=== PATIENT | female | born 1990 | race Caucasian/White ===

== ENCOUNTER 2016-06-02 00:40 | Emergency (ER) | payer OTHER ==
--- NOTE | 2016-06-02 01:32 | PD ---
HPI Chief Complaint Left eye aura followed by a small headache specific to the left eye symptoms have now abated Date Seen: Jun 02, 2016 Time Seen: 01:28 Travel History International Travel<30 Days: No Contact w/Intl Traveler<30Days: No Known Affected Area: No History of Present Illness HPI 25-year-old female who is at 27 weeks and 5 days by her [place] of August 27, 2016 comes in today because of a slight left headache specific to her eye accompanied by a blood pressure at home of 133/77. Last was complicated by hypertension at 31 weeks followed by an eclamptic seizure at 33 weeks gestation. He since has been maintained on a baby aspirin during this symptoms have completely gone since she arrived to triage Para: 1 : 3 Last Menstrual Period: Jun 02, 2016 Miscarriage: 1 History Obstetric History Obstetric History section at 33 weeks due to eclampsia Past Surgical History Narrative Surgical section Family History Family History: Negative Social History Alcohol Use: No Tobacco Use: No Substance Abuse: No Allergies-Medications Narrative Medication Baby aspirin Physical Exam Narrative GENERAL: Well-nourished, well-developed patient. SKIN: Warm and dry. HEAD: Normocephalic and atraumatic. EYES: No scleral icterus. No injection or drainage. ENT: No nasal drainage noted. Mucous membranes pink. Airway patent. NECK: Supple, trachea midline. No JVD. CARDIOVASCULAR: Regular rate and rhythm without murmurs, gallops, or rubs. RESPIRATORY: Breath sounds equal bilaterally. No accessory muscle use. FHT's: Category: [-1] Baseline: [140-] Reactive: [-Moderate] Variability: [-Moderate] Decels: [-Absent] EXTREMITIES: No cyanosis or edema. BACK: Nontender without obvious deformity. No CVA tenderness. NEUROLOGICAL: Awake and alert. Motor and sensory grossly within normal limits. Five out of 5 muscle strength in all muscle groups. Normal speech. Data Data Orders Urinalysis - C+S If Indicated (06/02/16 01:24) Labs Laboratory Tests Test 06/02/16 01:05 Urine Color YELLOW Urine Turbidity HAZY Urine pH 6.0 Urine Specific [place] 1.027 Urine Protein TRACE mg/dL Urine Glucose (UA) NEG mg/dL Urine Ketones TRACE mg/dL Urine Occult Blood NEG Urine Nitrite NEG Urine Bilirubin NEG Urine Urobilinogen LESS THAN 2.0 MG/DL Urine Leukocyte Esterase SMALL Urine RBC 2 /hpf Urine WBC 2 /hpf Urine Squamous Epithelial 3 /hpf Cells Urine Amorphous Sediment RARE Urine Bacteria MOD /hpf Urine Mucus MOD /lpf Microscopic Urinalysis Comment CULTURE INDICATED MDM Plan Symptoms have disappeared, normal blood pressure with trace protein Discharge home with follow up as already scheduled Diagnosis Diagnosis: Primary Impression: Headache in , antepartum Additional Impressions: History of eclampsia 27 weeks gestation of Disposition: DISCHARGE HOME Ashley Kumari MD Jun 02, 2016 01:32
[2016-06-02 01:45] LABS: BACTERIA, URINE MOD /hpf; BLOOD, URINE NEG (NEG); COMMENT (UR) CULTURE INDICATED; CULTURE IF INDICATED CULTURE INDICATED; GLUCOSE,URINE NEG (NEG); KETONE, URINE TRACE mg/dL (NEG); MUCUS URINE MOD /lpf (OCC); NITRITE,URINE NEG (NEG); SQUAMOUS EPITHELIAL CELL URINE 3 /hpf (0-5); URINE COLOR YELLOW (YELLW/STRAW)
== END 2016-06-02 02:00 | disposition home or self-care (01) ==
LOC: HOBED 00:40
DX: O26.892 Other specified pregnancy related conditions, second trimester (principal); R51 Headache; Z79.82 Long term (current) use of aspirin; Z3A.27 27 weeks gestation of pregnancy
CPT/HCPCS: 81001; 87086; 99284